=== PATIENT | female | born 1960 | race Caucasian/White ===

== ENCOUNTER → 2020-08-05 08:04 | Outpatient (CLI) | payer OTHER, SELFPAY ==
[2020-08-05 09:35] LABS: Hematocrit 38.6 % (36-46); Hemoglobin 13.6 g/dL (12.0-16.0); Mean Corpuscular HGB Conc 35.2 % (30-36); Mean Corpuscular Hemoglobin 30.3 PG (26-34); Mean Corpuscular Volume 86.1 fL (80-100); Platelet Count 189 X10^3/uL (150-400); Red Blood Cell Count 4.48 X10^6/uL (4.0-5.2); Red Cell Distribution Width 12.6 % (11.6-14.8); White Blood Cell Count 3.9 X10^3/uL (4.5-11.0)
[2020-08-05 10:11] LABS: Alanine Aminotransferase 19 IU/L (<35); Albumin 4.1 g/dL (3.5-5.0); Albumin Globulin Ratio 1.5 (1.0-2.8); Alkaline Phosphatase 52 U/L (38-126); Aspartate Aminotransferase 26 IU/L (14-36); BUN Creatinine Ratio 16.7 (6-22); Bilirubin Total 1.1 mg/dL (0.2-1.3); Blood Urea Nitrogen 12 mg/dL (7-17); Calcium 9.2 mg/dL (8.4-10.2); Carbon Dioxide 26 mmol/L (22-32); Chloride 105 mmol/L (98-107); Cholesterol 244 mg/dL (140-199); Estimated Glomerular Filt Rate > 60.0 mL/min (>60); Globulin 2.7 g/dL (1.7-4.1); Glucose 97 mg/dL (70-100); HDL Cholesterol 61 mg/dL (40-60); HEMOLYSIS < 15 (0-50); LDL Cholesterol Calculated 163 mg/dL (<100); Potassium 3.8 mmol/L (3.4-5.1); Sodium 138 mmol/L (137-145); Total Protein 6.8 g/dL (6.3-8.2); Triglycerides 99 mg/dL (35-150)
[2020-08-05 10:38] LABS: TSH w/ Reflex to FT4 2.08 uIU/mL (0.47-4.68)
== END ==
PROVIDERS: PCP Registered Nurse Diabetes Educator; Referring Provider Registered Nurse Diabetes Educator; Visit Provider Registered Nurse Diabetes Educator
DX: E78.5 Hyperlipidemia, unspecified (principal); I10 Essential (primary) hypertension
CPT/HCPCS: 36415; 80053; 80061; 84443; 85027

== ENCOUNTER → 2021-08-12 07:56 | Outpatient (CLI) | payer OTHER, SELFPAY ==
[2021-08-12 08:31] LABS: Hematocrit 39.4 % (36-46); Hemoglobin 13.9 g/dL (12.0-16.0); Mean Corpuscular HGB Conc 35.1 % (30-36); Mean Corpuscular Hemoglobin 30.1 PG (26-34); Mean Corpuscular Volume 85.7 fL (80-100); Platelet Count 202 X10^3/uL (150-400); Red Cell Distribution Width 12.6 % (11.6-14.8); White Blood Cell Count 5.2 X10^3/uL (4.5-11.0)
[2021-08-12 09:19] LABS: Alanine Aminotransferase 22 IU/L (<35); Albumin 4.2 g/dL (3.5-5.0); Albumin Globulin Ratio 1.6 (1.0-2.8); Alkaline Phosphatase 49 U/L (38-126); Aspartate Aminotransferase 24 IU/L (14-36); BUN Creatinine Ratio 15.8 (6-22); Bilirubin Total 0.9 mg/dL (0.2-1.3); Blood Urea Nitrogen 12 mg/dL (7-17); Calcium 8.8 mg/dL (8.4-10.2); Carbon Dioxide 26 mmol/L (22-32); Chloride 107 mmol/L (98-107); Cholesterol 265 mg/dL (140-199); Estimated Glomerular Filt Rate > 60 mL/min (>60); Globulin 2.7 g/dL (1.7-4.1); Glucose 97 mg/dL (70-100); HDL Cholesterol 55 mg/dL (40-60); HEMOLYSIS < 15 (0-50); LDL Cholesterol Calculated 185 mg/dL (<100); Potassium 3.8 mmol/L (3.4-5.1); Sodium 139 mmol/L (137-145); Total Protein 6.9 g/dL (6.3-8.2); Triglycerides 123 mg/dL (35-150)
[2021-08-12 09:41] LABS: TSH w/ Reflex to FT4 2.94 uIU/mL (0.47-4.68)
== END ==
PROVIDERS: PCP Registered Nurse Diabetes Educator; Referring Provider Registered Nurse Diabetes Educator; Visit Provider Registered Nurse Diabetes Educator
DX: E78.5 Hyperlipidemia, unspecified (principal); I10 Essential (primary) hypertension
CPT/HCPCS: 36415; 80053; 80061; 84443; 85027

== ENCOUNTER 2021-08-16 05:08 | Emergency (ER) | payer OTHER, SELFPAY ==
[2021-08-16 05:19] VITALS: BP 141/78; PULSE 98; RESP 17; TEMP 37.7; O2SAT 98; BMI 33.0
--- NOTE | 2021-08-16 05:22 | ED.GENADULT ---
HPI - General Adult General Chief complaint: Urogenital-Female Stated complaint: PELVIC PAIN/FEVER Time Seen by Provider: 08/16/21 05:12 History of Present Illness HPI narrative: 61-year-old woman with history of hypertension, restless leg syndrome, migraine headache presents with acute onset left lower quadrant pain worsening over the last 24 hours awoke with rigors this morning fevers measured up to 101, myalgias and increasing left lower quadrant pain. She describes the initial pain yesterday as low pelvic cramping type pain and notes she is well past menopause. She notes that voiding caused more pain but not dysuria. She does not describe flank pain. She notes that she has been having more frequent bowel movements over the last 24 hours which is not necessarily unusual for her. There has been no black or bloody stools. She is mildly nauseated but no vomiting. No headaches, chest pain, dyspnea, orthopnea, lower extremity edema. She describes no unusual vaginal discharge. Patient notes that she has a strong family history for severe diverticulitis and diverticular complications Related Data Previous Rx's Medication Instructions Recorded gabapentin 300 mg capsule 300 mg PO BEDTIME #90 caps 08/06/20 lisinopril 10 1 tab PO DAILY #90 tabs 08/06/20 mg-hydrochlorothiazide 12.5 mg tablet potassium chloride 10 mEq 10 meq PO DAILY #90 caps 08/06/20 capsule,extended release sumatriptan succinate 100 mg See Rx Instructions PO .COMPLEX 08/06/20 tablet (Imitrex) #27 tabs amoxicillin 875 mg-potassium 1 tab PO BID #20 tabs 08/16/21 clavulanate 125 mg tablet oxycodone-acetaminophen 5 mg-325 1 tab PO Q6H PRN pain #10 tabs 08/16/21 mg tablet Allergies Allergy/AdvReac Type Severity Reaction Status Date / Time atenolol AdvReac Intermediate hair loss Verified 07/22/20 09:53 Review of Systems Review of Systems Narrative: Remainder of complete review of systems is otherwise unremarkable except for that included in the HPI. Patient History Medical History Dyslipidemia Gene mutation Hypertension Migraine RLS (restless legs syndrome) Social History Smoking Status: Never smoker additional social history: 07/22/2020 She lives in [place], [place] with her . They moved here from [place] in March 2020. 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 She works to 12 hour shifts per week. Currently commuting. Her is about to retire. They have 5 adult children in [place] and grandchildren as well. Smoking Status: Never smoker Exam Initial Vital Signs Initial Vital Signs: Vital Signs Temperature 100 F H 08/16/21 05:19 Pulse Rate 98 H 08/16/21 05:19 Respiratory Rate 17 08/16/21 05:19 Blood Pressure 141/78 H 08/16/21 05:19 Pulse Oximetry 98 08/16/21 05:19 Oxygen Delivery Method 08/16/21 05:19 General: Healthy appearing, in no acute distress. Able to give a complete and coherent history. Well-nourished well-developed HEENT: Moist mucous membranes, normal sclera with reactive pupils, Neck: No JVD, supple Respiratory: Lungs are clear to auscultation, no wheezing no rales no rhonchi. Full and symmetrical air movement Cardiac: Regular rate and rhythm no murmurs no bruits Abdomen: Soft, tender in the left lower quadrant without rebound or guarding. no flank pain Skin: Warm and dry, no rashes Neurologic: Grossly neurologically intact with no obvious asymmetries or abnormalities Extremities: No trauma, well perfused Psych: Cooperative, appropriate insight and affect Course Orders Ordered: ED Orders 08/16/21 05:29 COVID19 -Nasal RAPID/Pre-Proc Stat 08/16/21 05:30 CT abdomen pelvis w con Stat 08/16/21 05:45 Complete Blood Count AUTO DIFF Stat Comprehensive Metabolic Panel Stat Lipase Stat Magnesium Stat Hydromorphone HCl (Hydromorphone 0.5 Mg Inj) 0.5 mg IV Q15MIN PRN PRN Reason: Pain, Last Admin: 08/16/21 05:58 Dose: 0.5 mg Documented By: EB Discontinued Medications Amoxicillin/Clavulanate Potassium (Amoxicillin/Clav 875/125 Mg) 1 tab PO NOW ONE Stop: 08/16/21 07:07 Sodium Chloride (Normal Saline 0.9%) 1,000 mls @ 1,000 mls/hr IV BOLUS ONE Stop: 08/16/21 06:28 Last Admin: 08/16/21 05:58 Dose: 1,000 mls/hr Documented By: NENA Ondansetron HCl (Ondansetron 4 Mg/2 Ml Inj) 4 mg IV NOW ONE Stop: 08/16/21 05:30 Last Admin: 08/16/21 05:58 Dose: 4 mg Documented By: NENA Vital Signs Vital signs: Vital Signs - 8 hr 08/16/21 05:19 Temperature 100 F H Pulse Rate 98 H Respiratory Rate 17 Blood Pressure 141/78 H Pulse Oximetry 98 Oxygen Delivery Method Room Air Medical Decision Making Lab Data Result diagrams: 08/16/21 05:45 08/16/21 05:45 Labs: Lab Results 08/16/21 08/16/21 08/16/21 Range/Units 05:45 05:45 05:45 WBC 9.5 (4.5-11.0) X10^3/uL RBC 4.50 (4.0-5.2) X10^6/uL Hgb 13.4 (12.0-16.0) g/dL Hct 38.9 (36-46) % MCV 86.5 (80-100) fL MCH 29.8 (26-34) PG MCHC 34.5 (30-36) % RDW 12.7 (11.6-14.8) % Plt Count 195 (150-400) X10^3/uL Neut % (Auto) 79.4 H (50-75) % Lymph % (Auto) 12.2 L (25-40) % [place] % (Auto) 7.3 (3-14) % Eos % (Auto) 0.8 L (2-4) % Baso % (Auto) 0.3 (0-2) % Neut # (Auto) 7500 H (6605-4597) /uL Lymph # (Auto) 1200 (1846-7022) /uL [place] # (Auto) 700 (0-900) /uL Eos # (Auto) 100 (0-450) /uL Baso # (Auto) 0 (0-100) /uL Sodium 140 (137-145) mmol/L Potassium 3.7 (3.4-5.1) mmol/L Chloride 104 (98-107) mmol/L Carbon Dioxide 28 (22-32) mmol/L BUN 11 (7-17) mg/dL Creatinine 0.78 (0.52-1.04) mg/dL Estimated GFR > 60 (>60) mL/min BUN/Creatinine Ratio 14.1 (6-22) Glucose 112 H (70-100) mg/dL Calcium 8.9 (8.4-10.2) mg/dL Magnesium 2.0 (1.6-2.3) mg/dL Total Bilirubin 1.3 (0.2-1.3) mg/dL AST 24 (14-36) IU/L ALT 19 (<35) IU/L Alkaline Phosphatase 53 (38-126) U/L Total Protein 7.8 (6.3-8.2) g/dL Albumin 4.5 (3.5-5.0) g/dL Globulin 3.3 (1.7-4.1) g/dL Albumin/Globulin Ratio 1.4 (1.0-2.8) Lipase 44 (23-300) U/L Imaging Data CT scan - abdomen/pelvis: Radiologist's Impression: Acute sigmoid diverticulitis. No bowel obstruction abscess or perforation Dr Garrett Sagastume MD [facility] Narrative Medical decision making narrative: 61-year-old woman with increasing left lower quadrant abdominal pain. CT scan confirms acute diverticulitis and labs are reassuring without evidence of overwhelming infection or sepsis. No kidney or liver abnormalities Findings are consistent with patient's presentation. Will discharge her home with recommendation to add MiraLax to clean out her colon and Augmentin for the next 7 days. Will ask her to follow-up with her primary care doctor and at some point in the future she will likely benefit from colonoscopy. Questions are answered and she is safe for home discharge Discharge Plan Departure Patient Disposition: Home Clinical Impression: Diverticulitis large intestine Qualifiers: Diverticulitis bleeding: without bleeding Diverticulitis complication: without perforation or abscess Qualified Code(s): K57.32 - Diverticulitis of large intestine without perforation or abscess without bleeding Instructions: DI for Diverticulitis Activity Restrictions/Additional Instructions: Thank you for coming in today You do have diverticulitis, it is mild and there is no abscess, perforation or reason for hospitalization at this time. I am going to put you on Augmentin for 10 days. I will also give you a small prescription for Percocet to use should the pain be severe. [facility] I would recommend enough MiraLax over the next number of days to get to very loose stool to trying clean out your bowel as much as possible If you find that you are getting worse or develop any new symptoms, please feel free to return to the emergency department for further evaluation. Prescriptions: New amoxicillin-pot clavulanate 875-125 mg tablet 1 tab PO BID Qty: 20 0RF oxycodone-acetaminophen 5-325 mg tablet 1 tab PO Q6H PRN (Reason: pain) Qty: 10 0RF No Action gabapentin 300 mg capsule 300 mg PO BEDTIME Qty: 90 3RF lisinopril-hydrochlorothiazide 10-12.5 mg tablet 1 tab PO DAILY Qty: 90 3RF potassium chloride 10 mEq capsule, extended release 10 meq PO DAILY Qty: 90 3RF sumatriptan succinate [Imitrex] 100 mg tablet See Rx Instructions PO .COMPLEX Qty: 27 3RF Rx Instructions: take 1 tab at onset of headache; if no relief, may repeat 1 tab after at least 2 hrs; max = 2 tabs/24 hrs PO Referrals: Wolf May ARNP [Primary Care Provider] -
--- NOTE | 2021-08-16 05:30 | DI.CT.S_ITS ---
PROCEDURE: CT ABDOMEN PELVIS W CON INDICATIONS: LLQ pain TECHNIQUE: After the administration of intravenous contrast, axial sections acquired from the lung bases to the pubic symphysis. Coronal and sagittal reformats were performed. For radiation dose reduction, the following was used: automated exposure control, adjustment of mA and/or kV according to patient size. COMPARISON: None. FINDINGS: Image quality: Excellent. Lung bases: Lung bases are clear. Heart size is normal. Solid organs: Liver: The liver has no mass or intrahepatic biliary ductal dilatation. The portal vein and hepatic veins are patent. Biliary: Status post cholecystectomy. Pancreas: The pancreas has no mass or ductal dilatation. There is no surrounding inflammation. Spleen: Normal size. There are no masses. Adrenals: No hypertrophy or nodules. Kidneys: No obstructive calculus or hydronephrosis. No solid mass. No cystic mass. Peritoneum and bowel: The distal esophagus and stomach are normal. The small bowel has a normal caliber and appearance. The terminal ileum is normal. The large bowel has diverticulosis without evidence of diverticulitis. No free fluid or air. Nodes and vessels: No retroperitoneal or mesenteric adenopathy by size criteria. Aorta and inferior vena cava are normal in size. Miscellaneous: No abdominal wall mass or hernia. PELVIS: Genitourinary: The bladder has no wall thickening or mass. No bladder calcifications. Bones: No suspicious bony lesions. No vertebral body compression fractures. IMPRESSION: Acute sigmoid diverticulitis. No bowel obstruction. No abscess or perforation. Comment: Final report is concordant with preliminary interpretation by [facility] Dictated by: Navarro Wilburn M.D. on 08/16/2021 at 6:31 Approved by: Navarro Wilburn M.D. on 08/16/2021 at 6:32
[2021-08-16 05:52] LABS: Add Manual Diff / Slide Review NO; Basophils Absolute Auto 0 /uL (0-100); Basophils Percent Auto 0.3 % (0-2); Eosinophils Absolute Auto 100 /uL (0-450); Eosinophils Percent Auto 0.8 % (2-4); Hematocrit 38.9 % (36-46); Hemoglobin 13.4 g/dL (12.0-16.0); Lymphocytes Absolute Auto 1200 /uL (1100-4500); Lymphocytes Percent Auto 12.2 % (25-40); Mean Corpuscular HGB Conc 34.5 % (30-36); Mean Corpuscular Hemoglobin 29.8 PG (26-34); Mean Corpuscular Volume 86.5 fL (80-100); Monocytes Absolute Auto 700 /uL (0-900); Monocytes Percent Auto 7.3 % (3-14); Neutrophils Absolute Auto 7500 /uL (1500-7000); Neutrophils Percent Auto 79.4 % (50-75); Platelet Count 195 X10^3/uL (150-400); Red Cell Distribution Width 12.7 % (11.6-14.8); White Blood Cell Count 9.5 X10^3/uL (4.5-11.0)
[2021-08-16] MEDS: ONDANSETRON 4 MG/2 ML INJ IV (05:58)
[2021-08-16] MEDS: HYDROMORPHONE 0.5 MG INJ IV (05:58)
[2021-08-16] MEDS: SODIUM CHLORIDE 0.9% 1,000 ML 1000 ML IV (05:58)
[2021-08-16 06:02] LABS: Alanine Aminotransferase 19 IU/L (<35); Albumin 4.5 g/dL (3.5-5.0); Albumin Globulin Ratio 1.4 (1.0-2.8); Alkaline Phosphatase 53 U/L (38-126); Aspartate Aminotransferase 24 IU/L (14-36); BUN Creatinine Ratio 14.1 (6-22); Bilirubin Total 1.3 mg/dL (0.2-1.3); Blood Urea Nitrogen 11 mg/dL (7-17); Calcium 8.9 mg/dL (8.4-10.2); Carbon Dioxide 28 mmol/L (22-32); Chloride 104 mmol/L (98-107); Estimated Glomerular Filt Rate > 60 mL/min (>60); Globulin 3.3 g/dL (1.7-4.1); Glucose 112 mg/dL (70-100); HEMOLYSIS < 15 (0-50); Potassium 3.7 mmol/L (3.4-5.1); Sodium 140 mmol/L (137-145); Total Protein 7.8 g/dL (6.3-8.2)
[2021-08-16 06:03] LABS: Lipase 44 U/L (23-300)
[2021-08-16 07:21] VITALS: PULSE 85; O2SAT 100
[2021-08-16 07:22] VITALS: BP 125/68; PULSE 87; O2SAT 100
[2021-08-16] MEDS: AMOXICILLIN/CLAV 875/125 MG 1 TAB PO (07:29)
== END 2021-08-16 07:30 | disposition home or self-care (01) ==
PROVIDERS: Emergency Provider Emergency Medicine; PCP Registered Nurse Diabetes Educator
DX: K57.32 Diverticulitis of large intestine without perforation or abscess without bleeding (principal)
CPT/HCPCS: 36415; 74177; 80053; 83690; 83735; 85025; 96361; 96374; 96375; 99284; J1170; J2405; Q9967

== ENCOUNTER → 2021-09-01 07:15 | Outpatient (CLI) | payer OTHER, SELFPAY | PROVIDERS: PCP Registered Nurse Diabetes Educator; Referring Provider Registered Nurse Diabetes Educator; Visit Provider Registered Nurse Diabetes Educator | DX: E78.5 Hyperlipidemia, unspecified (principal); I10 Essential (primary) hypertension | CPT/HCPCS: 36415 ==

== ENCOUNTER → 2022-04-07 11:04 | Outpatient (CLI) | payer OTHER, SELFPAY | PROVIDERS: PCP Registered Nurse Diabetes Educator; Visit Provider Registered Nurse Diabetes Educator | DX: L98.9 Disorder of the skin and subcutaneous tissue, unspecified (principal) | CPT/HCPCS: 87252 ==

== ENCOUNTER → 2022-10-05 12:06 | Outpatient (CLI) | payer OTHER, SELFPAY ==
[2022-10-05 14:05] LABS: Creatinine Urine Random 39.4 mg/dL
[2022-10-05 14:15] LABS: Microalbumi Creatinin Ratio Ur 22.8 ug/mg CR (<30); Microalbumin Urine Random 0.9 mg/dL (0-1.6)
== END ==
PROVIDERS: PCP Registered Nurse Diabetes Educator; Visit Provider Registered Nurse Diabetes Educator
DX: I10 Essential (primary) hypertension (principal)
CPT/HCPCS: 82043; 82570

== ENCOUNTER → 2022-10-07 06:57 | Outpatient (CLI) | payer OTHER, SELFPAY ==
[2022-10-07 07:47] LABS: Hematocrit 38.8 % (36-46); Hemoglobin 13.8 g/dL (12.0-16.0); Mean Corpuscular HGB Conc 35.5 % (30-36); Mean Corpuscular Hemoglobin 30.1 PG (26-34); Mean Corpuscular Volume 84.9 fL (80-100); Platelet Count 206 X10^3/uL (150-400); Red Blood Cell Count 4.57 X10^6/uL (4.0-5.2); Red Cell Distribution Width 12.8 % (11.6-14.8)
[2022-10-07 07:59] LABS: Hemoglobin A1C% w Est Avg Glu 4.7 % (4.0-6.0)
[2022-10-07 08:04] LABS: Alanine Aminotransferase 22 IU/L (<35); Albumin 4.2 g/dL (3.5-5.0); Albumin Globulin Ratio 1.6 (1.0-2.8); Alkaline Phosphatase 52 U/L (38-126); Aspartate Aminotransferase 26 IU/L (14-36); BUN Creatinine Ratio 19.4 (6-22); Bilirubin Total 0.7 mg/dL (0.2-1.3); Blood Urea Nitrogen 13 mg/dL (7-17); Calcium 9.1 mg/dL (8.4-10.2); Carbon Dioxide 25 mmol/L (22-32); Chloride 104 mmol/L (98-107); Cholesterol 263 mg/dL (140-199); Estimated Glomerular Filt Rate > 60 mL/min (>60); Globulin 2.7 g/dL (1.7-4.1); Glucose 102 mg/dL (80-110); HDL Cholesterol 52 mg/dL (40-60); HEMOLYSIS < 15 (0-50); LDL Cholesterol Calculated 174 mg/dL (<100); Potassium 3.7 mmol/L (3.4-5.1); Sodium 138 mmol/L (137-145); Total Protein 6.9 g/dL (6.3-8.2); Triglycerides 185 mg/dL (35-150)
== END ==
PROVIDERS: PCP Registered Nurse Diabetes Educator; Referring Provider Registered Nurse Diabetes Educator; Visit Provider Registered Nurse Diabetes Educator
DX: E78.5 Hyperlipidemia, unspecified (principal); I10 Essential (primary) hypertension
CPT/HCPCS: 36415; 80053; 80061; 83036; 84443; 85027

== ENCOUNTER → 2022-12-08 16:05 | Outpatient (CLI) | payer OTHER, SELFPAY ==
--- NOTE | 2022-12-08 16:07 | DI.RAD.S_ITS ---
PROCEDURE: XR LUMBAR SPINE MIN 4V INDICATIONS: eval LBP, poss RUE radiculopathy TECHNIQUE: 5 views of the lumbar spine were acquired, including bilateral oblique views. COMPARISON: None. FINDINGS: Bones: 5 nonrib-bearing vertebrae are present. There is normal bony alignment. No vertebral body compression fractures. No suspicious bony lesions. Multilevel disc space narrowing and joint space narrowing, as well as facet hypertrophy. Soft tissues: Overlying bowel gas pattern is normal. No suspicious soft tissue calcifications. IMPRESSION: Multilevel degenerative disc and facet disease. No acute fracture. No osseous lesion. If symptoms and/or clinical suspicion for pathology persist, further assessment with repeat, or advanced imaging (e.g., CT, MRI, or bone scan) may be helpful for further assessment. Dictated by: Sujatha Cam M.D. on 12/08/2022 at 16:48 Approved by: Sujatha Cam M.D. on 12/08/2022 at 16:48
== END ==
LOC: LAB 16:06 → RAD 16:07
PROVIDERS: PCP Registered Nurse Diabetes Educator; Referring Provider Registered Nurse Diabetes Educator; Visit Provider Registered Nurse Diabetes Educator
DX: M51.36 Other intervertebral disc degeneration, lumbar region (principal); M47.816 Spondylosis without myelopathy or radiculopathy, lumbar region; M54.50 Low back pain, unspecified; G89.29 Other chronic pain
CPT/HCPCS: 72110

== ENCOUNTER → 2023-05-25 16:52 | Outpatient (CLI) | payer OTHER, SELFPAY ==
--- NOTE | 2023-05-25 16:54 | DI.RAD.S_ITS ---
PROCEDURE: XR SACRUM COCCYX MIN 2V INDICATIONS: sharp pain to coccyx x 3 mos with sitting TECHNIQUE: 3 views of the sacrum and coccyx acquired. COMPARISON: None. FINDINGS: Bones: No fractures or dislocations. No suspicious bony lesions. Soft tissues: Visualized bowel gas pattern is normal. No suspicious soft tissue densities. IMPRESSION: Unremarkable sacral and coccygeal radiographs Approved by: Blanco Duran M.D. on 05/26/2023 at 19:20
== END ==
LOC: RAD 16:53
PROVIDERS: PCP Registered Nurse Diabetes Educator; Referring Provider Physician Assistant; Visit Provider Physician Assistant
DX: M53.3 Sacrococcygeal disorders, not elsewhere classified (principal)
CPT/HCPCS: 72220

== ENCOUNTER → 2023-06-03 10:41 | Outpatient (CLI) | payer OTHER, SELFPAY ==
--- NOTE | 2023-06-03 10:42 | DI.RAD.S_ITS ---
PROCEDURE: XR DEXA AXIAL SKELETON INDICATIONS: asymptomatic menopause COMPARISON: None. FINDINGS: Lumbar Spine: Bone mineral density 0.844 g/cm2, T score -1.8. Left Hip: Bone mineral density 0.867 g/cm2, T score -0.6. Left Femoral Neck: Bone mineral density 0.649 g/cm2, T score -1.8. Right Hip: Bone mineral density 0.898 g/cm2, T score -0.4. Right Femoral Neck: Bone mineral density 0.748 g/cm2, T score -0.9. Fracture Risk Calculation (when applicable): 10-year fracture risk of a major osteoporotic fracture 8.3% and of a hip fracture 0.8%. (T score greater or equal to -1.0 to: NORMAL) (T score from -1.1 to -2.4: OSTEOPENIA) (T score less than or equal to -2.5: OSTEOPOROSIS) IMPRESSION: Osteopenia Follow-up guidelines as follows: Osteoporosis: Consider a repeat DEXA and Vertebral Fracture Assessment (VFA) exam in 2 years or sooner if medically necessary, to reassess this patient's status. Osteopenia: Consider a repeat DEXA in 2-3 years to reassess this patient's status, or if there is a new clinical indication. Normal: Consider a repeat DEXA in 5 years or sooner, or if there is a new clinical indication. Dictated by: Kishor Chaidez M.D. on 06/03/2023 at 22:04 Approved by: Kishor Chaidez M.D. on 06/03/2023 at 22:05
== END ==
PROVIDERS: PCP Registered Nurse Diabetes Educator; Referring Provider Physician Assistant; Visit Provider Physician Assistant
DX: M53.3 Sacrococcygeal disorders, not elsewhere classified (principal); M85.89 Other specified disorders of bone density and structure, multiple sites
CPT/HCPCS: 77080

== ENCOUNTER → 2023-10-28 07:05 | Outpatient (CLI) | payer OTHER, SELFPAY ==
[2023-10-28 08:14] LABS: Hematocrit 41.1 % (36-46); Hemoglobin 14.5 g/dL (12.0-16.0); Mean Corpuscular HGB Conc 35.3 % (30-36); Mean Corpuscular Hemoglobin 30.4 PG (26-34); Mean Corpuscular Volume 86.1 fL (80-100); Platelet Count 245 X10^3/uL (150-400); Red Blood Cell Count 4.78 X10^6/uL (4.0-5.2); Red Cell Distribution Width 12.9 % (11.6-14.8); White Blood Cell Count 6.1 X10^3/uL (4.5-11.0)
[2023-10-28 08:24] LABS: Hemoglobin A1C% w Est Avg Glu 4.8 % (4.0-6.0)
[2023-10-28 08:35] LABS: HEMOLYSIS < 15 (0-50); Iron 73 ug/dL (37-170)
[2023-10-28 08:40] LABS: Alanine Aminotransferase 35 IU/L (<35); Albumin 4.3 g/dL (3.5-5.0); Albumin Globulin Ratio 1.5 (1.0-2.8); Alkaline Phosphatase 55 U/L (38-126); Aspartate Aminotransferase 31 IU/L (14-36); BUN Creatinine Ratio 21.3 (6-22); Bilirubin Total 0.9 mg/dL (0.2-1.3); Blood Urea Nitrogen 17 mg/dL (7-17); Calcium 9.7 mg/dL (8.4-10.2); Carbon Dioxide 24 mmol/L (22-32); Chloride 103 mmol/L (98-107); Cholesterol 284 mg/dL (140-199); Estimated Glomerular Filt Rate > 60 mL/min (>60); Globulin 2.9 g/dL (1.7-4.1); Glucose 100 mg/dL (80-110); HDL Cholesterol 55 mg/dL (40-60); HEMOLYSIS < 15 (0-50); LDL Cholesterol Calculated 193 mg/dL (<100); Potassium 3.9 mmol/L (3.4-5.1); Sodium 136 mmol/L (137-145); Total Protein 7.2 g/dL (6.3-8.2); Triglycerides 178 mg/dL (35-150)
[2023-10-28 08:48] LABS: Percent Iron Saturation 23 % (15-50); Total Iron Binding Capacity 322 ug/dL (265-497); Transferrin 260 mg/dL (206-381)
[2023-10-28 09:05] LABS: TSH w/ Reflex to FT4 4.44 uIU/mL (0.47-4.68)
[2023-10-28 09:10] LABS: Ferritin 70 ng/mL (11-264)
[2023-10-28 09:28] LABS: Creatinine Urine Random 253.35 mg/dL
== END ==
PROVIDERS: PCP Registered Nurse Diabetes Educator; Referring Provider Registered Nurse Diabetes Educator; Visit Provider Registered Nurse Diabetes Educator
DX: E78.5 Hyperlipidemia, unspecified (principal); I10 Essential (primary) hypertension; R73.01 Impaired fasting glucose; G25.81 Restless legs syndrome
CPT/HCPCS: 36415; 80053; 80061; 82043; 82570; 82728; 83036; 83540; 83550; 84443; 85027

== ENCOUNTER → 2024-03-13 08:41 | Outpatient (CLI) | payer OTHER, SELFPAY ==
--- NOTE | 2024-03-13 08:43 | DI.CT.S_ITS ---
PROCEDURE: CT CHEST WO CON INDICATIONS: reeval pulmonary nodules seen on CAC CT at [facility] Imaging TECHNIQUE: Noncontrast 5 mm thick sections acquired from the pulmonary apices to the posterior costophrenic angles. 1 mm lung window, 5 mm thick coronal and sagittal and 7 mm axial MIP reformats were then acquired. For radiation dose reduction, the following was used: automated exposure control, adjustment of mA and/or kV according to patient size. COMPARISON: Outside Facility, RG, CT CALCIUM SCORING, 11/23/2023, 16:45. FINDINGS: Image quality: Diagnostic. Lower Neck: No enlarged lymph nodes. Thyroid: No thyroid nodules which require sonographic follow up, per consensus guidelines. Axillae: No enlarged lymph nodes. Chest Wall: Unremarkable. Bones: Unremarkable. Lungs and Pleura: No pneumothorax or pleural effusions. No consolidation or suspicious nodules. There are scattered small pulmonary nodules bilaterally, ranging from punctate to 5 mm in maximal dimension. The appearance is stable over time and presumably represents evidence of old granulomatous disease. Heart: Heart size is normal. No pericardial effusion. Thoracic Vessels: The aorta and pulmonary arteries demonstrate normal size. Mediastinum and Sera: No enlarged lymph nodes. Esophagus: No wall thickening. No hiatal hernia. Upper Abdomen: Visualized upper abdomen solid organs and bowel loops appear normal. IMPRESSION: Stable [id number]-[id number] mm bilateral pulmonary nodules consistent with old granulomatous disease. No follow-up recommended. Dictated by: Jack Rollins M.D. on 03/17/2024 at 15:46 Approved by: Jack Rollins M.D. on 03/17/2024 at 15:53
== END ==
LOC: CT 08:42
PROVIDERS: PCP Registered Nurse Diabetes Educator; Referring Provider Registered Nurse Diabetes Educator; Visit Provider Registered Nurse Diabetes Educator
DX: R91.8 Other nonspecific abnormal finding of lung field (principal)
CPT/HCPCS: 71250

== ENCOUNTER → 2024-06-27 07:44 | Outpatient (CLI) | payer OTHER, SELFPAY ==
[2024-06-27 09:11] LABS: Add Manual Diff / Slide Review NO; Basophils Absolute Auto 0 /uL (0-100); Basophils Percent Auto 0.7 % (0-2); Eosinophils Absolute Auto 200 /uL (0-450); Eosinophils Percent Auto 3.2 % (2-4); Hematocrit 40.2 % (36-46); Hemoglobin 14.1 g/dL (12.0-16.0); Lymphocytes Absolute Auto 1700 /uL (1100-4500); Lymphocytes Percent Auto 34.6 % (25-40); Mean Corpuscular Hemoglobin 30.4 PG (26-34); Mean Corpuscular Volume 86.9 fL (80-100); Monocytes Absolute Auto 400 /uL (0-900); Monocytes Percent Auto 7.4 % (3-14); Neutrophils Absolute Auto 2700 /uL (1500-7000); Neutrophils Percent Auto 54.1 % (50-75); Platelet Count 203 X10^3/uL (150-400); Red Blood Cell Count 4.63 X10^6/uL (4.0-5.2); Red Cell Distribution Width 12.7 % (11.6-14.8)
[2024-06-27 09:26] LABS: HEMOLYSIS < 15 (0-50); Iron 81 ug/dL (37-170)
[2024-06-27 09:34] LABS: Alanine Aminotransferase 36 IU/L (<35); Albumin 4.8 g/dL (3.5-5.0); Alkaline Phosphatase 50 U/L (38-126); Aspartate Aminotransferase 35 IU/L (14-36); BUN Creatinine Ratio 18.4 (6-22); Blood Urea Nitrogen 14 mg/dL (7-17); Calcium 9.5 mg/dL (8.4-10.2); Carbon Dioxide 25 mmol/L (22-32); Chloride 102 mmol/L (98-107); Cholesterol 187 mg/dL (140-199); Estimated Glomerular Filt Rate > 60 mL/min (>60); Globulin 2.4 g/dL (1.7-4.1); Glucose 94 mg/dL (70-99); HDL Cholesterol 56 mg/dL (40-60); HEMOLYSIS < 15 (0-50); LDL Cholesterol Calculated 97 mg/dL (<100); Potassium 3.8 mmol/L (3.4-5.1); Sodium 138 mmol/L (137-145); Total Protein 7.2 g/dL (6.3-8.2); Triglycerides 170 mg/dL (35-150)
[2024-06-27 09:43] LABS: Percent Iron Saturation 25 % (15-50); Total Iron Binding Capacity 328 ug/dL (265-497); Transferrin 297 mg/dL (206-381)
[2024-06-27 09:44] LABS: Free T4, Direct Thyroxine 0.76 ng/dL (0.78-2.19)
[2024-06-27 09:58] LABS: Thyroid Stimulating Hormone 3.21 uIU/mL (0.47-4.68)
[2024-06-27 10:03] LABS: Appearance Urine UA CLEAR; Bilirubin Urine UA NEGATIVE (NEGATIVE); Color Urine UA YELLOW; Glucose Urine UA NEGATIVE (Negative); Ketones Urine UA NEGATIVE (NEGATIVE); Leukocyte Esterase Urine UA 1+ (NEGATIVE); Nitrite Urine UA NEGATIVE (Negative); Occult Blood Urine UA NEGATIVE (Negative); Protein Urine UA NEGATIVE (Negative); Urobilinogen Urine UA 0.2 E.U./dL (0.2)
[2024-06-27 10:04] LABS: pH Urine UA 7.5 (4.5-8.0)
[2024-06-27 10:07] LABS: Ferritin 76 ng/mL (11-264)
[2024-06-27 10:18] LABS: Vitamin B12 > 1000 pg/mL (239-931)
[2024-06-27 10:20] LABS: Bacteria Urine Moderate (10-30); Culture Indicated Urine Specimen Cultured; RBC Urine None Seen (0-5/HPF); Squamous Epithelial Cell Urine 5-10 /HPF (0-5/HPF); Urine Volume 10mL (spun); WBC Urine 1-5/HPF (0-5/HPF)
[2024-06-27 10:37] LABS: Creatinine Urine Random 96.31 mg/dL
[2024-06-27 10:42] LABS: Microalbumin Urine Random 0.7 mg/dL (0-1.6)
== END ==
LOC: LAB 07:45
PROVIDERS: PCP Registered Nurse Diabetes Educator; Referring Provider Registered Nurse Diabetes Educator; Visit Provider Registered Nurse Diabetes Educator
DX: R73.01 Impaired fasting glucose (principal); M85.80 Other specified disorders of bone density and structure, unspecified site; E78.5 Hyperlipidemia, unspecified; I10 Essential (primary) hypertension; R80.9 Proteinuria, unspecified
CPT/HCPCS: 36415; 80053; 80061; 81001; 82043; 82306; 82570; 82607; 82728; 83540; 83550; 84439; 84443; 85025; 87086

== ENCOUNTER → 2024-08-10 06:47 | Outpatient (CLI) | payer OTHER, SELFPAY | PROVIDERS: PCP Registered Nurse Diabetes Educator; Referring Provider Registered Nurse Diabetes Educator; Visit Provider Registered Nurse Diabetes Educator | DX: E03.9 Hypothyroidism, unspecified (principal) | CPT/HCPCS: 36415; 84480; 86376 ==

== ENCOUNTER → 2024-08-23 13:53 | Outpatient (CLI) | payer OTHER, SELFPAY ==
--- NOTE | 2024-08-23 17:12 | DI.NM.S_ITS ---
DATE OF SERVICE: 08/23/2024 PROCEDURE: Exercise stress test. INDICATIONS: Chest pain, fatigue. CARDIAC STRESS: The patient underwent exercise stress test under the supervision of an attending staff. The patient used standard Kevyn protocol. The patient walked on Kevyn protocol for 6 minutes and 06 seconds, achieved 7 METS of workload, maximum heart rate 168 which was 106% of target heart rate, ZANE positive 25%. Baseline rhythm was sinus with some nonspecific ST-T changes. During stress, no convincing ischemic EKG changes seen. The patient has intermittent PACs and PVCs, including short run of atrial triplets and couplets. No obvious AFib or ventricular tachycardia. Resting blood pressure 102/80 and peak blood pressure 180/90. No chest pain. [place] shortness of breath. Normal recovery. CONCLUSION: Exercise stress test negative for inducible ischemia. Diminished exercise tolerance. Normal hemodynamic response. Intermittent premature atrial contractions and premature ventricular contractions including atrial triplets and couplets without any atrial fibrillation or ventricular tachycardia. No chest pain. Had shortness of breath. Overall, low-risk exercise stress test. Correlate clinically. Pamela Cramer - JEANETTE/will/SAURABH doc#: [id number]/job#: [id number] dd: 08/23/2024 17:00:00 dt: 08/23/2024 17:05:00 DICTATING /COPIES TO: Emanuel Barcenas MD COPIES MNE: TORSTEN;
--- NOTE | 2024-09-19 17:43 | DI.NM.S_ITS ---
DATE OF SERVICE: 08/23/2024 EXERCISE STRESS TEST INDICATIONS: Hypertension, hyperlipidemia, fatigue, weakness. CARDIAC STRESS: The patient underwent exercise stress test under the supervision of an attending staff. She walked on Kevyn protocol for 6 minutes, achieved maximum heart rate of 168, which was 106% of target heart rate, ZANE positive 25%, seven METS of workload. Baseline blood pressure 102/80 and peak blood pressure 160/90, 180/90. Baseline rhythm sinus. During stress some nonspecific ST-T changes. The patient has intermittent PACs, PVCs as well as short run of atrial tachycardia. At peak exercise, baseline artifact. In the immediate recovery, no obvious ischemic EKG changes. No sustained ventricular tachycardia or obvious AFib seen. Had some shortness of breath. No chest pain. CONCLUSION: Exercise stress test is negative for inducible ischemia. Diminished exercise tolerance. Normal blood pressure response. ZANE positive 25%. 106% of target heart rate. Intermittent PACs, PVCs, short run of atrial tachycardia during exercise and early recovery. No obvious AFib or ventricular tachycardia seen. Correlate clinically. Pamela Cramer - JEANETTE/will/BRYAN doc#: [id number]/job#: [id number] dd: 09/19/2024 16:52:00 dt: 09/19/2024 17:31:00 DICTATING /COPIES TO: Emanuel Barcenas MD COPIES MNE: TORSTEN;
== END ==
PROVIDERS: PCP Registered Nurse Diabetes Educator; Referring Provider Registered Nurse Diabetes Educator; Visit Provider Registered Nurse Diabetes Educator
DX: R07.9 Chest pain, unspecified (principal)
CPT/HCPCS: 93017

== ENCOUNTER → 2024-09-12 08:20 | Outpatient (CLI) | payer OTHER, SELFPAY ==
--- NOTE | 2024-09-12 08:21 | DI.US.S_ITS ---
PROCEDURE: US PELVIC COMPLETE INDICATIONS: eval LLQ pain TECHNIQUE: Real-time scanning was performed of the pelvic organs, with image documentation. Additional endovaginal scanning was necessary due to incomplete visualization of the adnexal and endometrial structures by transabdominal scanning. COMPARISON: None. FINDINGS: Uterus: Uterus is anteverted and normal in size at 6.2 x 3.6 x 5.5 cm. The myometrium is homogeneous. The endometrium measures 4.5 mm combined thickness. Ovaries: Not visualized. No adnexal mass. Other: No pathologic free abdominal or pelvic fluid. IMPRESSION: Normal sonographic appearance of the uterus. Ovaries not visualized. No adnexal mass. Consider CT abdomen/pelvis or MRI of the pelvis with contrast (gynecologic mass protocol) if there remains a concern for pathology. We strive to produce accurate, complete, and clear reports of imaging services. To assist us in improving patient care, this report was composed using standard report templates and voice recognition software. Therefore, it may contain abnormal punctuation, insertions and/or omissions. Occasional wrong-word or sound-alike substitutions may occur. Though we review the report and make efforts to correct it, we do recommend that the report be read carefully in proper context to recognize any text inaccuracies. Dictated by: Sean Morgan M.D. on 09/12/2024 at 13:08 Approved by: Sean Morgan M.D. on 09/12/2024 at 13:10
== END ==
PROVIDERS: PCP Registered Nurse Diabetes Educator; Referring Provider Registered Nurse Diabetes Educator; Visit Provider Registered Nurse Diabetes Educator
DX: R10.32 Left lower quadrant pain (principal); R10.2 Pelvic and perineal pain
CPT/HCPCS: 76830; 76856

== ENCOUNTER → 2024-11-03 09:10 | Outpatient (CLI) | payer OTHER, SELFPAY ==
[2024-11-03 10:17] LABS: Alanine Aminotransferase 41 IU/L (<35); Albumin 4.3 g/dL (3.5-5.0); Albumin Globulin Ratio 1.7 (1.0-2.8); Alkaline Phosphatase 48 U/L (38-126); Globulin 2.6 g/dL (1.7-4.1); HEMOLYSIS < 15 (0-50); Total Protein 6.9 g/dL (6.3-8.2)
[2024-11-03 10:46] LABS: Free T4, Direct Thyroxine 0.76 ng/dL (0.78-2.19)
[2024-11-03 11:00] LABS: Thyroid Stimulating Hormone 1.34 uIU/mL (0.47-4.68)
== END ==
PROVIDERS: PCP Registered Nurse Diabetes Educator; Referring Provider Registered Nurse Diabetes Educator; Visit Provider Registered Nurse Diabetes Educator
DX: R10.32 Left lower quadrant pain (principal); R10.2 Pelvic and perineal pain; R79.89 Other specified abnormal findings of blood chemistry; R53.83 Other fatigue
CPT/HCPCS: 36415; 80076; 84439; 84443

== ENCOUNTER → 2024-11-15 07:11 | Outpatient (CLI) | payer OTHER, SELFPAY ==
--- NOTE | 2024-11-15 07:12 | DI.MRI.S_ITS ---
PROCEDURE: MR BRAIN (PITUITARY) WWO CON INDICATIONS: eval central hypothyroidism TECHNIQUE: Noncontrast sagittal and axial FLAIR, axial gradient echo, axial diffusion and ADC through the brain. Thin-slice sagittal and coronal T1 spin echo, coronal T2 fast spin echo through the pituitary. After the administration contrast, optional dynamic coronal T1 spin echo, thin-slice coronal and sagittal T1 spin echo images through the pituitary fossa; axial and coronal and sagittal T1 spin echo with fat saturation through the brain. COMPARISON: None. FINDINGS: Image quality: Excellent. Pituitary Gland: Normal appearance. Maximus is homogeneously. No masses. Pituitary stalk is midline. CSF Spaces: Ventricles are normal in size and shape. Basal cisterns are patent. No extra-axial fluid collections. Brain: No intracranial bleeds or mass effects. No abnormal intracranial enhancement. Mckeon-white matter interface is intact. Diffusion weighted images demonstrate no acute ischemic insults. Brainstem is normal. Normal intravascular flow voids are present. Skull and face: Calvarial marrow is normal in signal. Orbits appear normal. Sinuses: Sinuses and mastoids are clear. IMPRESSION: Normal appearance of the pituitary gland. No pituitary lesions are seen. No acute intracranial abnormalities or abnormal intracranial enhancement. Dictated by: Francisco Javier Snow M.D. on 11/16/2024 at 10:58 Approved by: Francisco Javier Snow M.D. on 11/16/2024 at 11:01
--- NOTE | 2024-11-15 07:12 | DI.US.S_ITS ---
PROCEDURE: US ABDOMEN LIMITED INDICATIONS: eval liver enzyme elevation TECHNIQUE: Real-time scanning was performed of the abdominal and retroperitoneal organs, with image documentation. COMPARISON: None. FINDINGS: Liver: Liver is hyperechoic without discrete lesion. Liver measures 16.1 centimeter. Gallbladder: Cholecystectomy. Biliary ducts: Intrahepatic bile ducts are non-dilated. Extrahepatic bile duct caliber measures 3 mm. Normal is 6-7 mm or less in diameter, or 10 mm or less post-cholecystectomy. Pancreas: Visualized portions of the pancreas are sonographically normal. Miscellaneous: No free abdominal fluid. IMPRESSION: Hepatic steatosis. Dictated by: Yonny Rosales M.D. on 11/15/2024 at 16:46 Approved by: Yonny Rosales M.D. on 11/15/2024 at 16:47
== END ==
LOC: US 07:12
PROVIDERS: PCP Registered Nurse Diabetes Educator; Referring Provider Registered Nurse Diabetes Educator; Visit Provider Registered Nurse Diabetes Educator
DX: E03.8 Other specified hypothyroidism (principal); K76.0 Fatty (change of) liver, not elsewhere classified; R74.8 Abnormal levels of other serum enzymes; Z90.49 Acquired absence of other specified parts of digestive tract
CPT/HCPCS: 70553; 76705; A9579

== ENCOUNTER 2025-01-05 17:06 | Emergency (ER) | payer OTHER, SELFPAY ==
[2025-01-05] VITALS (8 sets, daily range): BP systolic 130–145; BP diastolic 62–75; PULSE 70–84; RESP 16; TEMP 36.9; O2SAT 98–99; BMI 34.9
--- NOTE | 2025-01-05 17:37 | ED_ITS ---
HPI - Nausea/Vomiting/Diarrhea <Alia Call PA-C - Last Filed: 01/05/25 20:16> General Chief complaint: Nausea/Vomiting/Diarrhea Stated complaint: rectal bleeding, abd px since yesterday Time Seen by Provider: 01/05/25 17:32 History of Present Illness HPI Narrative: Ms. Cramer is a pleasant 64-year-old female with a past medical history of diverticulitis, HTN, RLS, migraines who presents to the emergency department for abdominal pain, nausea, vomiting, diarrhea that started last night now with blood from her rectum. Patient states that she had a potluck at work yesterday and was eating food that had been sitting on all tea. Around 1:00 a.m. she was woken up with acute onset abdominal cramping, nausea, vomiting and diarrhea. She continues to have lower abdominal pain but the vomiting had stopped today. She started to have a scant amount bright red blood from her rectum without stool. The diarrhea is slowing down she continues to have abdominal pain. She denies fevers, chills, chest pain, shortness of breath, dysuria, hematuria, flank pain. No blood thinners. Related Data Previous Rx's ?Medication ?Instructions ?Recorded lisinopril 10 1 tab PO DAILY #90 tabs 03/04 mg-hydrochlorothiazide 12.5 mg tablet naproxen 500 mg tablet 500 mg PO BID PRN for pain # 40 tabs 09/08/24 potassium chloride 10 mEq 10 meq PO DAILY #90 caps 03/04 capsule,extended release pramipexole 0.125 mg tablet 0.125 mg PO QPM #90 tabs 0 09/08/24 rosuvastatin 10 mg tablet 10 mg PO DAILY #90 tabs 03/04 sumatriptan succinate 100 mg See Rx Instructions PO .C OMPLEX 09/08/24 tablet (Imitrex) #27 tabs Tirzepatide 10mg+cyanocobalamin See Rx Instructions .R oute 01/01/25 0.5mg per mL .COMPLEX #6 mL ondansetron 4 mg disintegrating 4 mg PO Q8H PRN nausea and 01/05/25 tablet vomiting #15 tabs Allergies Allergy/AdvReac Type Severity Reaction Status Date / Time atenolol AdvReac Intermediate hair loss Verified 01/01/25 08:35 Review of Systems <Alia Call PA-C - Last Filed: 01/05/25 20:16> Review of Systems ROS Unobtainable: All systems reviewed & are unremarkable except as noted in HPI and below Patient History <Alia Call PA-C - Last Filed: 01/05/25 20:16> Medical History Hepatic steatosis SADE (obstructive sleep apnea) Pulmonary nodules Impaired fasting blood sugar Sleep apnea Gene mutation Migraine RLS (restless legs syndrome) Dyslipidemia Hypertension Social History Smoking Status: Never smoker additional social history: 07/22/2020 She lives in [place], [place] with her . They moved here from [place] in March 2020. 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 She works to 12 hour shifts per week. Currently commuting. Her is about to retire. They have 5 adult children in [place] and grandchildren as well. Smoking Status: Never smoker alcohol intake frequency: holidays/special occasions only Exam <Alia Call PA-C - Last Filed: 01/05/25 20:16> Narrative Exam Narrative: GENERAL: 64 year old patient appears stated age. Well-developed patient, in no acute distress. HEAD: Atraumatic. Normocephalic. EYES: No scleral icterus. No injection or drainage. NECK: Trachea midline. Cervical ROM intact. CARDIOVASCULAR: Regular rate and rhythm. RESPIRATORY: ?Nonlabored respirations. ?Speaking in clear, full sentences. ?Clear to auscultation. Breath sounds equal bilaterally. No wheezes, rales, or rhonchi. ? GASTROINTESTINAL: Abdomen soft, nondistended. There is tenderness to palpation of the left lower quadrant and suprapubic region. Patient gave verbal consent for rectal exam, feel nurse nurse first assist, Marce, present. Patient has soft and nonbleeding external anal skin tags. No visible anal fissure. Digital rectal exam revealed brown stool, it was Hemoccult positive. EXTREMITIES: No LE edema. BACK: No CVA tenderness. NEURO: AOx3. ?Clear speech. ?Moves all 4 extremities appropriately. SKIN: No rash or erythema of visible areas Initial Vital Signs Initial Vital Signs: Vital Signs Temperature 98.5 F 01/05/25 17:10 Pulse Rate 84 01/05/25 17:10 Respiratory Rate 16 01/05/25 17:10 Blood Pressure 145/75 H 01/05/25 17:10 Pulse Oximetry 99 01/05/25 17:10 Oxygen Delivery Method Room Air 01/05/25 17:10 <Flavio Francois MD - Last Filed: 01/05/25 20:31> Initial Vital Signs Initial Vital Signs: Vital Signs Temperature 98.5 F 01/05/25 17:10 Pulse Rate 84 01/05/25 17:10 Respiratory Rate 16 01/05/25 17:10 Blood Pressure 145/75 H 01/05/25 17:10 Pulse Oximetry 99 01/05/25 17:10 Oxygen Delivery Method Room Air 01/05/25 17:10 Course <Alia Call PA-C - Last Filed: 01/05/25 20:16> Orders Ordered: ED Orders 01/05/25 18:00 Complete Blood Count AUTO DIFF Stat PT [Prothrombin Time INR] Stat PTT Partial Thromboplastin Ash Stat 01/05/25 18:02 CT abdomen pelvis w con Stat 01/05/25 18:30 Comprehensive Metabolic Panel Stat Lipase Stat 01/05/25 19:34 Urinalysis and Microscopic Stat Discontinued Medications Sodium Chloride (Normal Saline 0.9%) 1,000 mls @ 1,000 mls/hr IV BOLUS ONE Stop: 01/05/25 18:32 Last Infusion: 01/05/25 19:32 Dose: Infused Documented By: Admin: 01/05/25 18:07 Dose: 1,000 mls/hr Documented By: SABINA Ondansetron HCl (Ondansetron 4 Mg/2 Ml Inj) 4 mg IV NOW ONE Stop: 01/05/25 17:34 Last Admin: 01/05/25 18:10 Dose: Not Given Documented By: SABINA Vital Signs Vital signs: Vital Signs - 8 hr 01/05/25 17:10 01/05/25 18:17 01/05/25 18:17 Temperature 98.5 F Pulse Rate 84 74 Respiratory Rate 16 Blood Pressure 145/75 H 130/67 Pulse Oximetry 99 98 Oxygen Delivery Method Room Air 01/05/25 18:30 01/05/25 18:31 01/05/25 18:31 Temperature Pulse Rate 74 81 Respiratory Rate Blood Pressure 145/71 H Pulse Oximetry 99 99 Oxygen Delivery Method 01/05/25 19:00 01/05/25 19:01 01/05/25 19:01 Temperature Pulse Rate 82 81 Respiratory Rate 16 Blood Pressure 142/69 H Pulse Oximetry 99 99 Oxygen Delivery Method 01/05/25 19:30 01/05/25 19:30 01/05/25 20:21 Temperature Pulse Rate 70 75 Respiratory Rate 16 16 Blood Pressure 132/62 143/67 H Pulse Oximetry 98 98 Oxygen Delivery Method Room Air <Flavio Francois MD - Last Filed: 01/05/25 20:31> Orders Ordered: ED Orders 01/05/25 18:00 Complete Blood Count AUTO DIFF Stat PT [Prothrombin Time INR] Stat PTT Partial Thromboplastin Ash Stat 01/05/25 18:02 CT abdomen pelvis w con Stat 01/05/25 18:30 Comprehensive Metabolic Panel Stat Lipase Stat 01/05/25 19:34 Urinalysis and Microscopic Stat Discontinued Medications Sodium Chloride (Normal Saline 0.9%) 1,000 mls @ 1,000 mls/hr IV BOLUS ONE Stop: 01/05/25 18:32 Last Infusion: 01/05/25 19:32 Dose: Infused Documented By: Admin: 01/05/25 18:07 Dose: 1,000 mls/hr Documented By: SABINA Ondansetron HCl (Ondansetron 4 Mg/2 Ml Inj) 4 mg IV NOW ONE Stop: 01/05/25 17:34 Last Admin: 01/05/25 18:10 Dose: Not Given Documented By: SABINA Vital Signs Vital signs: Vital Signs - 8 hr 01/05/25 17:10 01/05/25 18:17 01/05/25 18:17 Temperature 98.5 F Pulse Rate 84 74 Respiratory Rate 16 Blood Pressure 145/75 H 130/67 Pulse Oximetry 99 98 Oxygen Delivery Method Room Air 01/05/25 18:30 01/05/25 18:31 01/05/25 18:31 Temperature Pulse Rate 74 81 Respiratory Rate Blood Pressure 145/71 H Pulse Oximetry 99 99 Oxygen Delivery Method 01/05/25 19:00 01/05/25 19:01 01/05/25 19:01 Temperature Pulse Rate 82 81 Respiratory Rate 16 Blood Pressure 142/69 H Pulse Oximetry 99 99 Oxygen Delivery Method 01/05/25 19:30 01/05/25 19:30 01/05/25 20:21 Temperature Pulse Rate 70 75 Respiratory Rate 16 16 Blood Pressure 132/62 143/67 H Pulse Oximetry 98 98 Oxygen Delivery Method Room Air MDM - Nausea/Vomiting/Diarrhea <Alia Call PA-C - Last Filed: 01/05/25 20:16> Medical Records Attestation: I reviewed the patient's medical records. Lab Data 01/05/25 18:00 01/05/25 18:30 Labs: Lab Results 01/05/25 01/05/25 01/05/25 Range/Units 18:00 18:30 19:34 WBC 7.8 (4.5-11.0) X10^3/uL RBC 4.83 (4.0-5.2) X10^6/uL Hgb 14.5 (12.0-16.0) g/dL Hct 41.1 (36-46) % MCV 85.1 (80-100) fL MCH 30.1 (26-34) PG MCHC 35.3 (30-36) % RDW 13.0 (11.6-14.8) % Plt Count 229 (150-400) X10^3/uL Neut % (Auto) 70.7 (50-75) % Lymph % (Auto) 19.9 L (25-40) % [place] % (Auto) 6.2 (3-14) % Eos % (Auto) 2.9 (2-4) % Baso % (Auto) 0.3 (0-2) % Neut # (Auto) 5500 (3765-6556) /uL Lymph # (Auto) 1600 (2204-4233) /uL [place] # (Auto) 500 (0-900) /uL Eos # (Auto) 200 (0-450) /uL Baso # (Auto) 0 (0-100) /uL PT 11.3 (9.4-12.5) SECONDS INR 1.0 (0.9-1.3) APTT 28 (25.1-36.5) SECONDS Sodium 140 (137-145) mmol/L Potassium 3.4 (3.4-5.1) mmol/L Chloride 108 H (98-107) mmol/L Carbon Dioxide 27 (22-32) mmol/L BUN 9 (7-17) mg/dL Creatinine 0.69 (0.52-1.04) mg/dL Estimated GFR > 60 (>60) mL/min BUN/Creatinine Ratio 13.0 (6-22) Glucose 94 (70-99) mg/dL Calcium 8.9 (8.4-10.2) mg/dL Total Bilirubin 1.1 (0.2-1.3) mg/dL AST 35 (14-36) IU/L ALT 29 (<35) IU/L Alkaline Phosphatase 40 (38-126) U/L Total Protein 6.9 (6.3-8.2) g/dL Albumin 4.2 (3.5-5.0) g/dL Globulin 2.7 (1.7-4.1) g/dL Albumin/Globulin Ratio 1.6 (1.0-2.8) Lipase 47 (23-300) U/L Urine Color [place] Urine Appearance Sl cloudy Urine pH TNP Ur Specific [place] TNP Urine Protein TNP Urine Glucose (UA) TNP Urine Ketones TNP Urine Occult Blood TNP Urine Nitrate TNP Urine Bilirubin TNP Urine Urobilinogen TNP Ur Leukocyte Esterase TNP Urine RBC 10-30/hpf H (0-5/HPF) Urine WBC 0-1/hpf (0-5/HPF) Ur Squamous Epith Cells 1-5 /hpf (0-5/HPF) Urine Bacteria Few (2-10) H (None) Urine Mucus 1+ H (Negative) Ur Culture Indicated? Cult not indicated Vol Urine Centrifuged Low vol <10ml (spun) A Point of Care Testing Stool Occult Blood Positive Urine Dip Bedside Urine Glucose Negative Bedside Urine Bilirubin - Negative Bedside Urine Ketone - Negative Urine Specific [place] 1.005 Bedside Urine Occult Blood - Negative Bedside Urine pH 7 Bedside Urine Protein - Negative Bedside Urine Urobilinogen - Negative Bedside Urine Nitrite - Negative Bedside Urine Leukocytes +/- [address] scan - abdomen/pelvis: Radiologist's Impression: PROCEDURE: CT ABDOMEN PELVIS W CON INDICATIONS: lower abd pain; N/V/D; BRB per rectum TECHNIQUE: After the administration of intravenous contrast, axial sections acquired from the lung bases to the pubic symphysis. Coronal and sagittal reformats were performed. For radiation dose reduction, the following was used: automated exposure control, adjustment of mA and/or kV according to patient size. COMPARISON: [facility], CT, CT ABDOMEN PELVIS W CON, 08/16/2021, 6:11. FINDINGS: Image quality: Diagnostic. Lower Chest: No significant findings. ABDOMEN: Liver: No solid mass. Gallbladder: Absent. Biliary ducts: No biliary dilation. Pancreas: No ductal dilation. Spleen: Size is within normal limits. Adrenal Glands: No adrenal nodules. Kidneys and Ureters: No hydronephrosis. No solid mass. No complex renal cystic lesion which requires follow up. Stomach and Bowel: Long segment of wall thickening of the descending colon and sigmoid colon. Diverticula are present, but there is no inflamed diverticulum noted. Pericolonic fat stranding is present. Wall stratification is present. Peritoneum: No abnormal intraperitoneal fluid. No free air. Ventral Wall: Small umbilical hernia containing fat. Abdominal Nodes: No retroperitoneal or mesenteric adenopathy by size criteria. Vessels: Aorta and inferior vena cava are normal in size. PELVIS: Pelvic Organs: Unremarkable. Bladder: No bladder wall thickening, accounting for underdistention. Pelvic Nodes: No enlarged lymph nodes. Miscellaneous: No inguinal hernias are seen. Bones: No aggressive osseous abnormality. Bilateral sacroiliitis. IMPRESSION: Colitis of the descending and sigmoid colon. Bilateral sacroiliitis is present, so inflammatory bowel disease is a consideration. Dictated by: Sean Morgan M.D. on 01/05/2025 at 19:25 Approved by: Sean Morgan M.D. on 01/05/2025 at 19:27 MDM Narrative Medical decision making narrative: 64-year-old female with a past medical history of diverticulitis, HTN, RLS, migraines who presents to the emergency department for abdominal pain, nausea, vomiting, diarrhea that started last night now with blood from her rectum. Differential diagnosis includes but isn't limited to colitis, diverticulitis, gastroenteritis, infectious diarrhea, electrolyte abnormality, dehydration, etc. On exam the patient is in no acute distress, nontoxic appearing, vital signs appropriate. She does have mild tenderness to palpation of the lower abdomen with no rebound or guarding. Bowel sounds are present. Rectal exam is Hemoccult positive reveals no active bleeding. We will obtain CBC, CMP, lipase, coags, stool testing, urine testing, acetaminophen less IV contrast. We will treat symptoms with IV fluids and Zofran. Patient's lab work is overall reassuring with normal renal function BUN 9 creatinine 0.69. Normal coags. CBC with normal WBC count 7.8, hemoglobin 14.5 hematocrit 41.1. Platelets 229. CT reveals colitis of the descending and sigmoid colon and bilateral sacroiliitis, inflammatory bowel disease is a consideration. Patient feels much better after ED treatment. Repeat abdominal exam is benign. Patient unable to provide stool sample in the ED, diarrhea has stopped. Discussed case with the attending ED physician Dr. Francois. Given that patient's diarrhea has stopped, normal lab work, we will not treat colitis with antibiotics at this time. I did advise patient follow up with PCP for repeat colonoscopy, last colonoscopy was normal 3 years ago. Discussed fluid diet tomorrow, hydration, electrolyte beverages. Her urinalysis also did reveal blood without signs of infections so encouraged repeat urinalysis with PCP and possible referral to Urology if blood continues. Discussed ER return precautions with the patient and supportive care. She verbalized understanding of all information is agreeable with the plan. She feels much better. Provided with script for Zofran. She is stable for discharge home. <Flavio Francois MD - Last Filed: 01/05/25 20:31> Lab Data Labs: Lab Results 01/05/25 01/05/25 01/05/25 Range/Units 18:00 18:30 19:34 WBC 7.8 (4.5-11.0) X10^3/uL RBC 4.83 (4.0-5.2) X10^6/uL Hgb 14.5 (12.0-16.0) g/dL Hct 41.1 (36-46) % MCV 85.1 (80-100) fL MCH 30.1 (26-34) PG MCHC 35.3 (30-36) % RDW 13.0 (11.6-14.8) % Plt Count 229 (150-400) X10^3/uL Neut % (Auto) 70.7 (50-75) % Lymph % (Auto) 19.9 L (25-40) % [place] % (Auto) 6.2 (3-14) % Eos % (Auto) 2.9 (2-4) % Baso % (Auto) 0.3 (0-2) % Neut # (Auto) 5500 (5253-8961) /uL Lymph # (Auto) 1600 (7044-3761) /uL [place] # (Auto) 500 (0-900) /uL Eos # (Auto) 200 (0-450) /uL Baso # (Auto) 0 (0-100) /uL PT 11.3 (9.4-12.5) SECONDS INR 1.0 (0.9-1.3) APTT 28 (25.1-36.5) SECONDS Sodium 140 (137-145) mmol/L Potassium 3.4 (3.4-5.1) mmol/L Chloride 108 H (98-107) mmol/L Carbon Dioxide 27 (22-32) mmol/L BUN 9 (7-17) mg/dL Creatinine 0.69 (0.52-1.04) mg/dL Estimated GFR > 60 (>60) mL/min BUN/Creatinine Ratio 13.0 (6-22) Glucose 94 (70-99) mg/dL Calcium 8.9 (8.4-10.2) mg/dL Total Bilirubin 1.1 (0.2-1.3) mg/dL AST 35 (14-36) IU/L ALT 29 (<35) IU/L Alkaline Phosphatase 40 (38-126) U/L Total Protein 6.9 (6.3-8.2) g/dL Albumin 4.2 (3.5-5.0) g/dL Globulin 2.7 (1.7-4.1) g/dL Albumin/Globulin Ratio 1.6 (1.0-2.8) Lipase 47 (23-300) U/L Urine Color [place] Urine Appearance Sl cloudy Urine pH TNP Ur Specific [place] TNP Urine Protein TNP Urine Glucose (UA) TNP Urine Ketones TNP Urine Occult Blood TNP Urine Nitrate TNP Urine Bilirubin TNP Urine Urobilinogen TNP Ur Leukocyte Esterase TNP Urine RBC 10-30/hpf H (0-5/HPF) Urine WBC 0-1/hpf (0-5/HPF) Ur Squamous Epith Cells 1-5 /hpf (0-5/HPF) Urine Bacteria Few (2-10) H (None) Urine Mucus 1+ H (Negative) Ur Culture Indicated? Cult not indicated Vol Urine Centrifuged Low vol <10ml (spun) A Point of Care Testing Stool Occult Blood Positive Urine Dip Bedside Urine Glucose Negative Bedside Urine Bilirubin - Negative Bedside Urine Ketone - Negative Urine Specific [place] 1.005 Bedside Urine Occult Blood - Negative Bedside Urine pH 7 Bedside Urine Protein - Negative Bedside Urine Urobilinogen - Negative Bedside Urine Nitrite - Negative Bedside Urine Leukocytes +/- 15 Esterase Discharge Plan Departure Patient Disposition: Home Clinical Impression: Colitis, Bilateral sacroiliitis Instructions: DI for Nausea -- Adult, DI for Colitis Activity Restrictions/Additional Instructions: Dear Ms. Cramer, Thank you for coming to the emergency department. Today you were evaluated for abdominal pain, nausea, vomiting, diarrhea, bloody stool. Your workup today revealed colitis which is inflammation of the colon. Your CT also revealed sacroiliitis which is inflammation of your SI joints. It is very important that you talk with your primary care doctor about having a repeat colonoscopy for further evaluation. At this time please rest, hydrate, consuming primarily liquid diet tomorrow consisting of Pedialyte, Gatorade, broths and various electrolyte beverages. You have been prescribed nausea medicine to take if needed. If you start to develop constipation, please use MiraLax to help prevent straining of stools. Your urine test did not reveal any signs of infection but it did reveal a small amount of blood. This could be because of dehydration however it is important to follow up with the primary care doctor for further evaluation repeat urinalysis, if you continue to have blood in your urine you may need to be referred to a urologist. Return to the emergency department if you develop severe pain, fevers, persistent vomiting diarrhea or any other concerns. Please follow up with your primary care doctor within the next 2-3 days for ER follow-up. (If you do not have a PCP you can call [phone]. ?to schedule an appointment with an [facility] Primary Care Provider) IF YOU DEVELOP ANY NEW OR WORSENING SYMPTOMS, RETURN TO THE ER! Please read the attached instructions, they highlight more specific treatments and interventions for you at home. Thank you for letting me participate in your care, Alia Call PA-C Prescriptions: New ondansetron 4 mg tablet,disintegrating 4 mg PO Q8H PRN (Reason: nausea and vomiting) Qty: 15 0RF No Action Tirzepatide 10mg+cyanocobalamin 0.5mg per mL See Rx Instructions .ROUTE .COMPLEX Qty: 6 3RF Rx Instructions: Inject 5mg SQ weekly for 4 weeks, then increase to 7.5mg weekly. OK to compound tirzepatide with vitamin B12. [facility]. lisinopril-hydrochlorothiazide 10-12.5 mg tablet 1 tab PO DAILY Qty: 90 3RF pramipexole 0.125 mg tablet 0.125 mg PO QPM Qty: 90 3RF rosuvastatin 10 mg tablet 10 mg PO DAILY Qty: 90 3RF sumatriptan succinate [Imitrex] 100 mg tablet See Rx Instructions PO .COMPLEX Qty: 27 3RF Rx Instructions: take 1 tab at onset of headache; if no relief, may repeat 1 tab after at least 2 hrs; max = 2 tabs/24 hrs PO potassium chloride 10 mEq capsule, extended release 10 meq PO DAILY Qty: 90 3RF naproxen 500 mg tablet 500 mg PO BID PRN (Reason: for pain) Qty: 40 0RF Referrals: Wolf May ARNP [Primary Care Provider, Medical] Stand Alone Forms: Patient Portal/API ED Sign-out <Flavio Francois MD - Last Filed: 01/05/25 20:31> Cosign ED Attending Cosignature Attestation: I was immediately available in the department for consultation. ?This documentation has been reviewed and I agree with assessment and plan. Supervised by Flavio Francois MD
--- NOTE | 2025-01-05 18:02 | DI.CT.S_ITS ---
PROCEDURE: CT ABDOMEN PELVIS W CON INDICATIONS: lower abd pain; N/V/D; BRB per rectum TECHNIQUE: After the administration of intravenous contrast, axial sections acquired from the lung bases to the pubic symphysis. Coronal and sagittal reformats were performed. For radiation dose reduction, the following was used: automated exposure control, adjustment of mA and/or kV according to patient size. COMPARISON: [facility], CT, CT ABDOMEN PELVIS W CON, 08/16/2021, 6:11. FINDINGS: Image quality: Diagnostic. Lower Chest: No significant findings. ABDOMEN: Liver: No solid mass. Gallbladder: Absent. Biliary ducts: No biliary dilation. Pancreas: No ductal dilation. Spleen: Size is within normal limits. Adrenal Glands: No adrenal nodules. Kidneys and Ureters: No hydronephrosis. No solid mass. No complex renal cystic lesion which requires follow up. Stomach and Bowel: Long segment of wall thickening of the descending colon and sigmoid colon. Diverticula are present, but there is no inflamed diverticulum noted. Pericolonic fat stranding is present. Wall stratification is present. Peritoneum: No abnormal intraperitoneal fluid. No free air. Ventral Wall: Small umbilical hernia containing fat. Abdominal Nodes: No retroperitoneal or mesenteric adenopathy by size criteria. Vessels: Aorta and inferior vena cava are normal in size. PELVIS: Pelvic Organs: Unremarkable. Bladder: No bladder wall thickening, accounting for underdistention. Pelvic Nodes: No enlarged lymph nodes. Miscellaneous: No inguinal hernias are seen. Bones: No aggressive osseous abnormality. Bilateral sacroiliitis. IMPRESSION: Colitis of the descending and sigmoid colon. Bilateral sacroiliitis is present, so inflammatory bowel disease is a consideration. Dictated by: Sean Morgan M.D. on 01/05/2025 at 19:25 Approved by: Sean Morgan M.D. on 01/05/2025 at 19:27
[2025-01-05] MEDS: SODIUM CHLORIDE 0.9% 1,000 ML 1000 ML IV (18:07)
[2025-01-05 18:08] LABS: Add Manual Diff / Slide Review NO; Hematocrit 41.1 % (36-46); Hemoglobin 14.5 g/dL (12.0-16.0); Lymphocytes Absolute Auto 1600 /uL (1100-4500); Mean Corpuscular HGB Conc 35.3 % (30-36); Mean Corpuscular Hemoglobin 30.1 PG (26-34); Mean Corpuscular Volume 85.1 fL (80-100); Platelet Count 229 X10^3/uL (150-400)
[2025-01-05 18:15] LABS: INR 1.0 (0.9-1.3); Prothrombin Time 11.3 SECONDS (9.4-12.5)
[2025-01-05 18:18] LABS: PTT Partial Thromboplastin Tim 28 SECONDS (25.1-36.5)
[2025-01-05 18:49] LABS: Alanine Aminotransferase 29 IU/L (<35); Albumin 4.2 g/dL (3.5-5.0); Albumin Globulin Ratio 1.6 (1.0-2.8); Alkaline Phosphatase 40 U/L (38-126); Blood Urea Nitrogen 9 mg/dL (7-17); Calcium 8.9 mg/dL (8.4-10.2); Carbon Dioxide 27 mmol/L (22-32); Chloride 108 mmol/L (98-107); Estimated Glomerular Filt Rate > 60 mL/min (>60); Globulin 2.7 g/dL (1.7-4.1); Glucose 94 mg/dL (70-99); HEMOLYSIS 46 (0-50); Lipase 47 U/L (23-300); Potassium 3.4 mmol/L (3.4-5.1); Sodium 140 mmol/L (137-145); Total Protein 6.9 g/dL (6.3-8.2)
[2025-01-05 20:03] LABS: Appearance Urine UA SL CLOUDY; Color Urine UA ORANGE
[2025-01-05 20:36] LABS: Culture Indicated Urine Specimen Cultured
== END 2025-01-05 20:22 | disposition home or self-care (01) ==
PROVIDERS: Emergency Provider Physician Assistant; PCP Registered Nurse Diabetes Educator
DX: K52.9 Noninfective gastroenteritis and colitis, unspecified (principal); M46.1 Sacroiliitis, not elsewhere classified
CPT/HCPCS: 36415; 74177; 80053; 81001; 81003; 82272; 83690; 85025; 85610; 85730; 87086; 87147; 96360; 99284; J7030